=== PATIENT | male | born 1945 | race Caucasian/White ===

== ENCOUNTER 2019-01-05 22:13 | Inpatient (IN) ==
[2019-01-05] MEDS ORDERED: VANCOMYCIN HCL 2,500 MG in SODIUM CHLORIDE 0.9% 500 ML IV ONE (22:38)
[2019-01-05] MEDS ORDERED: VANCOMYCIN CONSULT ACTIVE PRN (22:38)
[2019-01-05] MEDS ORDERED: SODIUM CHLORIDE 0.9% 1000ML 1,000 ML IV SCH (22:45)
[2019-01-05 23:08] LABS: INR 1.1 (0.9-1.1); Prothrombin Time 10.9 Seconds (9.0-12.0)
[2019-01-05 23:15] LABS: Alanine Aminotransferase 17 U/L (12-78); Albumin Level 2.8 gm/dl (3.4-5.0); Aspartate Aminotransferase 10 U/L (15-37); BUN Creatinine Ratio 19.8 (10-20); Blood Urea Nitrogen 43 mg/dl (7-18); Calcium 8.4 mg/dl (8.5-10.1); Carbon Dioxide 21 mmol/L (21-32); Chloride 102 mmol/L (98-107); Creatinine Clr Calc Pharmacy 37.1 ml/min; Est GFR (African American) 33.7; Est GFR (Non-African American) 29.1; Glucose 185 mg/dl (70-99); Potassium 4.3 mmol/L (3.5-5.1); Sodium 135 mmol/L (136-145)
[2019-01-05 23:19] LABS: Albumin Globulin Ratio 0.6 (0.9-2); Alkaline Phosphatase 111 U/L (45-117); Bilirubin,Total 0.4 mg/dl (0.2-1); Globulin 4.6 gm/dl (2.5-4.0); Total Protein 7.4 gm/dl (6.4-8.2); Troponin I < 0.015 ng/ml (0-0.045)
--- NOTE | 2019-01-05 23:35 | Emergency Department Note ---
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 She states the patient went to [place] a couple weeks ago. She notes the patient's wound opened up on December 12. She states the patient's wound has been getting deeper and he has been getting packing put in it. She states a culture of the wound has not been taken in the past 2 weeks. She states the patient has been taking Vancomycin for the past 6 weeks. The patient's states the patient's dressing was changed this morning. She states the patient's wound has been draining for the last couple weeks. She notes they drove from [place] this morning. The patient's daughter states the patient's leg was really swollen and the patient was complaining about leg pain when he arrived in [place]. The daughter notes the patient then fell asleep. The daughter states when they rechecked on the patient he had a high fever and was not talking. The daughter notes the patient's left leg was swollen. The daughter states the patient's hand and legs were twitching. The patient states he feels better than how he felt earlier. The notes the patient took oxycodone this morning and at 1800. The denies the patient having any cold symptoms. The states the patient got a flu shot last week. Home Medications Home Medications Medication Instructions Recorded Confirmed Type aspirin 81 mg PO DAILY 01/05/19 01/05/19 History bupropion HCl 200 mg PO QAM 01/05/19 01/05/19 History carvedilol 3.125 mg PO BID 01/05/19 01/05/19 History doxycycline hyclate 100 mg PO BID 01/05/19 01/05/19 History gabapentin 100 mg PO BID 01/05/19 01/05/19 History nifedipine 90 mg PO DAILY 01/05/19 01/06/19 History oxycodone [Roxicodone] 5 mg PO Q6H PRN 01/05/19 01/05/19 History pregabalin 75 mg PO BID 01/05/19 01/05/19 History allopurinol 200 mg PO DAILY 01/06/19 01/06/19 History bisacodyl 15 mg PO DIRECTED 01/06/19 01/06/19 History bumetanide 1 mg PO BID 01/06/19 01/06/19 History colchicine 0.6 mg PO DAILY 01/06/19 01/06/19 History cyanocobalamin (vitamin B-12) 1,000 mcg PO DAILY 01/06/19 01/06/19 History folic acid 1 mg PO DAILY 01/06/19 01/06/19 History hydrocortisone 1 applic TOPICAL DAILY PRN 01/06/19 01/06/19 History insulin aspart U-100 11 unit SUBCUT QAM 01/06/19 01/06/19 History insulin aspart U-100 15 unit SUBCUT DIRECTED 01/06/19 01/06/19 History insulin glargine 25 unit SUBCUT HS 01/06/19 01/06/19 History isosorbide dinitrate 10 mg PO TID 01/06/19 01/06/19 History ketoconazole 2 % TOPICAL DAILY 01/06/19 01/06/19 History linezolid 600 mg PO BID 01/06/19 01/06/19 History metformin 1,000 mg PO TID 01/06/19 01/06/19 History multivitamin 1 tab PO QAM 01/06/19 01/06/19 History polyethylene glycol 3350 [Miralax] 17 g PO DAILY 01/06/19 01/06/19 History pravastatin 80 mg PO DAILY 01/06/19 01/06/19 History triamcinolone acetonide 1 applic TOPICAL DAILY 01/06/19 01/06/19 History Allergies Allergy/AdvReac Type Severity Reaction Status Date / Time aspirin Allergy Mild adverse Verified 01/05/19 23:44 reaction atorvastatin Allergy Mild adverse Verified 01/05/19 23:44 reaction metoprolol Allergy Mild adverse Verified 01/05/19 23:44 reaction Past Med/Surg History Medical History Diabetes Surgical History Amputation of one or more toes Family History Other Family history non-contributory Social History Preferred Language: Greenlandic Communication Ability: Effective Feels Safe at Home: Yes Smoking Status: Former smoker Review of Systems See HPI for pertinent positives & negatives. and A total of 10 systems reviewed and were otherwise negative Physical Exam Vital Signs Vital Signs - 24 hr 01/05/19 22:17 01/05/19 22:20 01/05/19 22:46 Temperature 38.9 C H Temperature Source Oral Sepsis Recent Fever Within 48 Hours Yes Sepsis Action Taken by Nursing No Action Required Oxygen Flow Rate - Titration 2 Pulse Rate 110 H 112 H 108 H Pulse Rate from SpO2 Sensor 110 H 108 H Respiratory Rate 20 19 22 Respiratory Effort / Characteristics Non-Labored Respiratory Depth Normal Blood Pressure 136/74 136/74 142/75 H Blood Pressure Mean 94 94 97 Pulse Oximetry 94 95 93 Oxygen Delivery Method Nasal Cannula Oxygen Flow Rate 2 01/05/19 23:00 01/05/19 23:30 01/06/19 00:00 Temperature Temperature Source Sepsis Recent Fever Within 48 Hours Sepsis Action Taken by Nursing Oxygen Flow Rate - Titration Pulse Rate 109 H 108 H 107 H Pulse Rate from SpO2 Sensor 109 H 108 H 107 H Respiratory Rate 23 21 20 Respiratory Effort / Characteristics Respiratory Depth Blood Pressure 138/77 135/77 164/79 H Blood Pressure Mean 97 96 107 Pulse Oximetry 95 94 94 Oxygen Delivery Method Oxygen Flow Rate 01/06/19 00:30 Temperature 37.9 C H Temperature Source Sepsis Recent Fever Within 48 Hours Sepsis Action Taken by Nursing Oxygen Flow Rate - Titration Pulse Rate 103 H Pulse Rate from SpO2 Sensor 104 H Respiratory Rate 19 Respiratory Effort / Characteristics Respiratory Depth Blood Pressure 165/77 H Blood Pressure Mean 106 Pulse Oximetry 93 Oxygen Delivery Method Oxygen Flow Rate CONSTITUTIONAL/VITAL SIGNS: Reviewed / noted above. GENERAL: Non-toxic in appearance. INTEGUMENTARY: Warm, dry, and [place]. HEAD: Normocephalic. EYES: without scleral icterus or trauma. ENT/OROPHARYNX: clear and moist. LYMPHADENOPATHY/NECK: Is supple without lymphadenopathy or meningismus. RESPIRATORY: Lungs clear and equal. CARDIOVASCULAR: Regular rate and rhythm. GI/ABDOMEN: Soft and nontender. No organomegaly or pulsatile mass. No rebound or guarding. Normal bowel sounds. EXTREMITIES: Warm and well perfused. Toes of the left foot are previously amputated. Left foot is slightly warm and red. There is a lesion in the area of the third or fourth metatarsal that is open with purulent drainage. BACK: No CVA tenderness. NEUROLOGICAL: Seems slow to respond and slightly confused. He is a poor historian. PSYCHIATRIC: normal affect. MUSCULOSKELETAL: Normally developed with good muscle tone. Course 2219: The patient was evaluated in room B2, and a complete history and physical examination were performed. 0033: I discussed the patient's case with Dr. Mckee - [facility]. He will evaluate the patient for further management Administered Medications Vancomycin HCl 2,500 mg/ (Sodium Chloride) 550 mls @ 200 mls/hr IV NOW ONE Stop: 01/06/19 01:07 Last Admin: 01/06/19 00:38 Dose: 200 mls/hr Documented by: [id number] Discontinued Medications Sodium Chloride (Nss 1000ml) 1,000 mls @ 999 mls/hr IV .Q1H1M AI Stop: 01/05/19 23:45 Last Admin: 01/05/19 23:46 Dose: 999 mls/hr Documented by: [id number] Medical Decision Making Differential Diagnosis Differential diagnoses includes but is not limited to toxic, metabolic, infectious, traumatic, cardiac, neurologic, hematologic, psychiatric and inf lammatory etiologies. Medical Records Attestation: I reviewed the patient's medical records. Home Medications Current Medication List: was personally reviewed by me Laboratory Data Attestation: I reviewed the patient's lab results. Result diagrams: 01/05/19 22:36 01/05/19 22:36 Lab Results 01/05/19 01/05/19 01/05/19 Range/Units 22:31 22:36 22:36 WBC (4.8-10.8) K/uL RBC (4.7-6.1) M/uL Hgb (14.0-18.0) g/dL Hct (42-52) % MCV (80-100) fL MCH (25-34) pg MCHC (32-36) g/dL RDW Std Deviation (36.4-46.3) fL RDW Coeff of [place] (11.5-14.5) % Plt Count (130-400) K/uL MPV (7.4-10.4) fL Immature Gran % (Auto) % Neut % (Auto) % Lymph % (Auto) % [place] % (Auto) % Eos % (Auto) % Baso % (Auto) % Immature Gran # (Auto) (0.00-0.02) K/uL Neut # (Auto) (1.4-6.5) K/uL Lymph # (Auto) (1.2-3.4) K/uL [place] # (Auto) (0.11-0.59) K/uL Eos # (Auto) (0-0.5) K/uL Baso # (Auto) (0-0.2) K/uL RBC Morphology ESR > 90 H (0-14) mm/hr PT 10.9 (9.0-12.0) Seconds INR 1.1 (0.9-1.1) Sodium (136-145) mmol/L Potassium (3.5-5.1) mmol/L Chloride (98-107) mmol/L Carbon Dioxide (21-32) mmol/L Anion Gap (3-11) BUN (7-18) mg/dl Creatinine (0.6-1.4) mg/dl Est Cr Clr Drug Dosing ml/min Est GFR ( Amer) Est GFR (Non-Af Amer) BUN/Creatinine Ratio (10-20) Glucose (70-99) mg/dl POC Glucose 191 H (70-99) Lactate (0.4-2.0) mmol/L Calcium (8.5-10.1) mg/dl Total Bilirubin (0.2-1) mg/dl AST (15-37) U/L ALT (12-78) U/L Alkaline Phosphatase (45-117) U/L Troponin I (0-0.045) ng/ml C-Reactive Protein (0-0.29) mg/dl Total Protein (6.4-8.2) gm/dl Albumin (3.4-5.0) gm/dl Globulin (2.5-4.0) gm/dl Albumin/Globulin Ratio (0.9-2) Urine Color Urine Appearance (Clear) Urine pH (4.5-7.5) Ur Specific [place] (1.000-1.030) Urine Protein (Negative) Urine Glucose (UA) (Negative) Urine Ketones (Negative) Urine Blood (Negative) Urine Nitrite (Negative) Urine Bilirubin (Negative) Urine Urobilinogen (Negative) Ur Leukocyte Esterase (Negative) Urine WBC (Auto) (0-5) /hpf Urine RBC (Auto) (0-4) /hpf U Hyaline Cast (Auto) (0-5) /lpf U Epithel Cells (Auto) (0-5) /lpf Urine Bacteria (Auto) (Negative) Influenza Type A Ag (Neg) Influenza Type B Ag (Neg) 01/05/19 01/05/19 01/05/19 Range/Units 22:36 22:36 22:36 WBC 24.13 H (4.8-10.8) K/uL RBC 4.11 L (4.7-6.1) M/uL Hgb 11.3 L (14.0-18.0) g/dL Hct 34.4 L (42-52) % MCV 83.7 (80-100) fL MCH 27.5 (25-34) pg MCHC 32.8 (32-36) g/dL RDW Std Deviation 43.0 (36.4-46.3) fL RDW Coeff of [place] 14.1 (11.5-14.5) % Plt Count (130-400) K/uL MPV 10.9 H (7.4-10.4) fL Immature Gran % (Auto) 0.5 % Neut % (Auto) 83.0 % Lymph % (Auto) 8.1 % [place] % (Auto) 7.7 % Eos % (Auto) 0.6 % Baso % (Auto) 0.1 % Immature Gran # (Auto) 0.13 H (0.00-0.02) K/uL Neut # (Auto) 20.14 H (1.4-6.5) K/uL Lymph # (Auto) 1.97 (1.2-3.4) K/uL [place] # (Auto) 1.87 H (0.11-0.59) K/uL Eos # (Auto) 0.15 (0-0.5) K/uL Baso # (Auto) 0.03 (0-0.2) K/uL RBC Morphology Unremarkable ESR (0-14) mm/hr PT (9.0-12.0) Seconds INR (0.9-1.1) Sodium 135 L (136-145) mmol/L Potassium 4.3 (3.5-5.1) mmol/L Chloride 102 (98-107) mmol/L Carbon Dioxide 21 (21-32) mmol/L Anion Gap 12.0 H (3-11) BUN 43 H (7-18) mg/dl Creatinine 2.20 H (0.6-1.4) mg/dl Est Cr Clr Drug Dosing 37.1 ml/min Est GFR ( Amer) 33.7 Est GFR (Non-Af Amer) 29.1 BUN/Creatinine Ratio 19.8 (10-20) Glucose 185 H (70-99) mg/dl POC Glucose (70-99) Lactate 2.1 H* (0.4-2.0) mmol/L Calcium 8.4 L (8.5-10.1) mg/dl Total Bilirubin 0.4 (0.2-1) mg/dl AST 10 L (15-37) U/L ALT 17 (12-78) U/L Alkaline Phosphatase 111 (45-117) U/L Troponin I < 0.015 (0-0.045) ng/ml C-Reactive Protein 6.30 H (0-0.29) mg/dl Total Protein 7.4 (6.4-8.2) gm/dl Albumin 2.8 L (3.4-5.0) gm/dl Globulin 4.6 H (2.5-4.0) gm/dl Albumin/Globulin Ratio 0.6 L (0.9-2) Urine Color Urine Appearance (Clear) Urine pH (4.5-7.5) Ur Specific [place] (1.000-1.030) Urine Protein (Negative) Urine Glucose (UA) (Negative) Urine Ketones (Negative) Urine Blood (Negative) Urine Nitrite (Negative) Urine Bilirubin (Negative) Urine Urobilinogen (Negative) Ur Leukocyte Esterase (Negative) Urine WBC (Auto) (0-5) /hpf Urine RBC (Auto) (0-4) /hpf U Hyaline Cast (Auto) (0-5) /lpf U Epithel Cells (Auto) (0-5) /lpf Urine Bacteria (Auto) (Negative) Influenza Type A Ag (Neg) Influenza Type B Ag (Neg) 01/05/19 01/05/19 Range/Units 23:15 23:15 WBC (4.8-10.8) K/uL RBC (4.7-6.1) M/uL Hgb (14.0-18.0) g/dL Hct (42-52) % MCV (80-100) fL MCH (25-34) pg MCHC (32-36) g/dL RDW Std Deviation (36.4-46.3) fL RDW Coeff of [place] (11.5-14.5) % Plt Count (130-400) K/uL MPV (7.4-10.4) fL Immature Gran % (Auto) % Neut % (Auto) % Lymph % (Auto) % [place] % (Auto) % Eos % (Auto) % Baso % (Auto) % Immature Gran # (Auto) (0.00-0.02) K/uL Neut # (Auto) (1.4-6.5) K/uL Lymph # (Auto) (1.2-3.4) K/uL [place] # (Auto) (0.11-0.59) K/uL Eos # (Auto) (0-0.5) K/uL Baso # (Auto) (0-0.2) K/uL RBC Morphology ESR (0-14) mm/hr PT (9.0-12.0) Seconds INR (0.9-1.1) Sodium (136-145) mmol/L Potassium (3.5-5.1) mmol/L Chloride (98-107) mmol/L Carbon Dioxide (21-32) mmol/L Anion Gap (3-11) BUN (7-18) mg/dl Creatinine (0.6-1.4) mg/dl Est Cr Clr Drug Dosing ml/min Est GFR ( Amer) Est GFR (Non-Af Amer) BUN/Creatinine Ratio (10-20) Glucose (70-99) mg/dl POC Glucose (70-99) Lactate (0.4-2.0) mmol/L Calcium (8.5-10.1) mg/dl Total Bilirubin (0.2-1) mg/dl AST (15-37) U/L ALT (12-78) U/L Alkaline Phosphatase (45-117) U/L Troponin I (0-0.045) ng/ml C-Reactive Protein (0-0.29) mg/dl Total Protein (6.4-8.2) gm/dl Albumin (3.4-5.0) gm/dl Globulin (2.5-4.0) gm/dl Albumin/Globulin Ratio (0.9-2) Urine Color Yellow Urine Appearance Clear (Clear) Urine pH 5.0 (4.5-7.5) Ur Specific [place] 1.024 (1.000-1.030) Urine Protein 3+ H (Negative) Urine Glucose (UA) Trace H (Negative) Urine Ketones Trace H (Negative) Urine Blood Negative (Negative) Urine Nitrite Negative (Negative) Urine Bilirubin Negative (Negative) Urine Urobilinogen Negative (Negative) Ur Leukocyte Esterase Negative (Negative) Urine WBC (Auto) 1-5 (0-5) /hpf Urine RBC (Auto) 0-4 (0-4) /hpf U Hyaline Cast (Auto) 5-10 H (0-5) /lpf U Epithel Cells (Auto) 10-20 H (0-5) /lpf Urine Bacteria (Auto) Negative (Negative) Influenza Type A Ag Neg for Influ A (Neg) Influenza Type B Ag Neg for Influ B (Neg) Imaging Data Attestation: I personally reviewed and interpreted this imaging study as leo garcia: My Impression: Chest X-Ray 1 View: Chronic appearing interstitial changes. No pneumonia. no pneumothorax. X-Ray Left Foot 1 view: Osteomyelitis of the third metatarsal. ECG Data Attestation: I personally reviewed and interpreted this ECG as follows: Indication: altered mental status Rate (beats per minute): 109 Rhythm: sinus tachycardia Findings: no ST elevation and no ectopy Blood Pressure Blood Pressure Findings: Elevated blood pressure Blood Pressure Disposition: further management by hospitalist RADHA Dorado This is a 73-year-old male who presents to the ED with a chief complaint of a fever and change in mental status. The patient has a history of infection of his left foot. He has a history of diabetes. The patient has had the toes amputated from his left foot in the past. He has had an open wound in his left foot is for a few weeks. They have been recently putting packing in it and there is been some discharge. The patient's family also reports that he got a flu shot last week. The patient tonight was found to be somewhat confused. He had a high fever. He is from [place]. He is visiting from out of town. He normally goes to the [facility]. His exam reveals purulent discharge from a wound in his left foot. There is some redness and increased warmth in that area as well. He has not had any upper respiratory symptoms. Denies any nausea or vomiting. EKG shows a sinus tach at a rate of 103. Sed rate is greater than 90. CRP is 6.3. A chest x-ray did not show acute process according to my evaluation. X-ray of the left foot reveals osteomyelitis of the third metatarsal per my interpretation. White blood cell count is 24,000. BUN is 43 and creatinine is 2.2. Reviewing charts from the [facility] in [place], the kidney function is near baseline but slightly worse. Troponin is negative. Baseline renal function is unknown. Lactic acid level was slightly elevated. Urine did not show infection. The patient was given IV fluids. He was given a liter normal saline by EMS. He was also given a liter here. The patient was given IV vancomycin 25 mg/kg. He will be seen by the hospitalist for further evaluation and care. A culture of the wound was taken. Impression & Plan Osteomyelitis of foot, left, acute, Fever, Acute renal insufficiency Discharge Plan Visit Data Chief Complaint: Altered Mental Status ED Provider: Reji Moore Discharge Problem: Osteomyelitis of foot, left, acute, Fever, Acute renal insufficiency Patient Disposition: Being Evaluated by Hospitalist Condition: Fair Forms Stand Alone Forms: My [facility], Important Visit Information Prescriptions Prescriptions: No Action doxycycline hyclate 100 mg Capsule 100 mg PO BID RF: 0 oxycodone [Roxicodone] 5 mg Tablet 5 mg PO Q6H PRN (Reason: Pain) RF: 0 aspirin 81 mg Tablet,Chewable 81 mg PO DAILY RF: 0 gabapentin 100 mg Capsule 100 mg PO BID RF: 0 bupropion HCl 200 mg Tablet Sustained-Release 12 Hr 200 mg PO QAM RF: 0 pregabalin 75 mg Capsule 75 mg PO BID RF: 0 carvedilol 3.125 mg Tablet 3.125 mg PO BID RF: 0 nifedipine 30 mg Tablet Extended Release 90 mg PO DAILY RF: 0 isosorbide dinitrate 10 mg Tablet 10 mg PO TID RF: 0 pravastatin 80 mg Tablet 80 mg PO DAILY RF: 0 bumetanide 1 mg Tablet 1 mg PO BID RF: 0 ketoconazole 2 % Shampoo 2 % TOPICAL DAILY RF: 0 hydrocortisone 1 % Cream 1 applic TOPICAL DAILY PRN (Reason: Itching) RF: 0 triamcinolone acetonide 0.025 % Cream 1 applic TOPICAL DAILY RF: 0 polyethylene glycol 3350 [Miralax] 17 gram Powder In Packet 17 g PO DAILY RF: 0 bisacodyl 5 mg Tablet 15 mg PO DIRECTED RF: 0 insulin aspart U-100 100 unit/mL Solution 11 unit SUBCUT QAM RF: 0 insulin aspart U-100 100 unit/mL Solution 15 unit SUBCUT DIRECTED RF: 0 insulin glargine 100 unit/mL Solution 25 unit SUBCUT HS RF: 0 metformin 1,000 mg Tablet 1,000 mg PO TID RF: 0 allopurinol 100 mg Tablet 200 mg PO DAILY RF: 0 colchicine 0.6 mg Tablet 0.6 mg PO DAILY RF: 0 cyanocobalamin (vitamin B-12) 1,000 mcg Tablet 1,000 mcg PO DAILY RF: 0 folic acid 1 mg Tablet 1 mg PO DAILY RF: 0 multivitamin Tablet 1 tab PO QAM RF: 0 linezolid 600 mg Tablet 600 mg PO BID RF: 0 Referrals Referrals: PCP,NO [Primary Care Provider] - Discharge Problem: Fever Qualifiers: Fever type: unspecified Qualified Code(s): R50.9 - Fever, unspecified The scribe's documentation has been prepared under my direction and personally reviewed by me in its entirety. I confirm that the note above accurately reflects all work, treatment, procedures, and medical decision making performed by me.
[2019-01-05 23:36] LABS: Appearance Urine Clear (Clear); Bacteria Urine Automated Negative (Negative); Bilirubin Urine Negative (Negative); Blood Urine Negative (Negative); Color Urine Yellow; Glucose Urine UA Trace (Negative); Ketones Urine Trace (Negative); Leukocyte Esterase Urine Negative (Negative); Nitrite Urine Negative (Negative); Protein Urine 3+ (Negative); RBC Urine Automated 0-4 /hpf (0-4); Specific Gravity Urine 1.024 (1.000-1.030); Urobilinogen Urine Negative (Negative)
[2019-01-05 23:57] LABS: Basophils # (auto) 0.03 K/uL (0-0.2); Basophils % (auto) 0.1 %; Eosinophils # (auto) 0.15 K/uL (0-0.5); Eosinophils % (auto) 0.6 %; Hematocrit (blood only) 34.4 % (42-52); Hemoglobin 11.3 g/dL (14.0-18.0); Immature Granulocytes # (auto) 0.13 K/uL (0.00-0.02); Immature Granulocytes % (auto) 0.5 %; Lymphocytes # (auto) 1.97 K/uL (1.2-3.4); Lymphocytes % (auto) 8.1 %; Mean Corpuscular Hemoglobin 27.5 pg (25-34); Mean Corpuscular Hgb Conc 32.8 g/dL (32-36); Mean Corpuscular Volume 83.7 fL (80-100); Mean Platelet Volume 10.9 fL (7.4-10.4); Monocytes # (auto) 1.87 K/uL (0.11-0.59); Monocytes % (auto) 7.7 %; Neutrophils # (auto) 20.14 K/uL (1.4-6.5); RDW Coefficient of Variation 14.1 % (11.5-14.5); Red Blood Count 4.11 M/uL (4.7-6.1); White Blood Count 24.13 K/uL (4.8-10.8)
[2019-01-05 23:58] LABS: RBC Morphology Unremarkable
--- NOTE | 2019-01-06 01:39 | History & Physical Report ---
Date of Service January 06, 2019 Assessment & Plan (1) Osteomyelitis of foot, left, acute: Mr. Dasilva is a 73-year-old male with a past medical history of diabetes mellitus type II, left-sided transmetatarsal amputation, CKD stage III, peripheral neuropathy, TIA x2, gout, depression who presents to the emergency department due to fever, altered mental status, and lethargy. ED course: Received 1 L normal saline bolus from EMS, and an additional 1 L bolus in ED. 2.5 g of vancomycin IV Sepsis secondary to osteomyelitis of left foot -Admit to telemetry -patient meets criteria for sepsis with fever, leukocytosis, tachycardia -WCC elevated to 24, ESR >90, CRP 6.3 -lactate elevated at 2.1 -> will repeat level with AM labs -pt negative for Influenza, UA negative, CXR without evidence for infection -source appears to be left 3rd metatarsal osteomyelitis -> seen on XR -pt has a hx of MRSA -continue vancomycin, and add zosyn for pseudomonas coverage given hx of diabetes -NS ordered at 120 mls/hr x 2L -bcx drawn x2, and wound cx obtained in ED -ortho consulted, recommendations appreciated FRANCESCA on a background of CKD3 -per review of records, creatinine seems to range from 1.1 - 2.6 -> unsure of baseline -creatinine on admission is 2.2 -monitor BMP, fluids as above -avoid nephrotoxic agents - states pt takes bumex which is for ?fluid overload related to kidneys - will hold this for now in the setting of sepsis DM2 -hold home metformin -pt takes 25 units of glargine qhs and rapid acting insulin during the day -will order 10 units lantus qhs and ISS given pt is lethargic w/poor p.o intake Peripheral Neuropathy/Chronic Pain -hold home pregabalin, gabapentin and oxycodone given lethargy & AMS Systolic Murmur -heard on examination, no prior [facility] denies cardiac history, including prior NV or CHF -ECHO ordered Hx of TIA x2 - describes 2 prior "mini-strokes" but states one involved a brain bleed? -no residual deficits -continue aspirin, pravastatin Hypertension -continue nifedipine and carvedilol Gout -hold home allopurinol given potential FRANCESCA -hold home colchicine given no evidence of gout flare at this time Depression -continue home bupropion Code status: FULL, confirmed with , who is POA DVT Prophylaxis: 5,000 units heparin SQ BID Disposition: admit to telemetry. CM discussed this patient's case with the [place] transfer center who stated the patient is able to admitted to [facility], and may be transferred to [place] if required. (2) Fever: (3) Acute renal insufficiency: (4) DM2 (diabetes mellitus, type 2): (5) CKD stage 3 due to type 2 diabetes mellitus: (6) History of TIA (transient ischemic attack): (7) Peripheral neuropathy: (8) History of gout: (9) Sepsis: (10) Depression: History of Present Illness Chief Complaint: Sepsis, osteomyelitis Primary Care Provider: NO PCP Mr. Dasilva is a 73-year-old male with a past medical history of diabetes mellitus type II, left-sided transmetatarsal amputation, CKD stage III, peripheral neuropathy, TIA x2, gout, depression who presents to the emergency department due to fever, altered mental status, and lethargy. The history is largely supplied by his due to Mr. Dasilva being lethargic. He had a left transmetatarsal amputation 1.5 years ago. This was done due to slow healing infections that were in his toes. He has 2 sores, on either side of his foot, that have been opening up recurrently over the past year. He has had 3 separate courses of 6 weeks of vancomycin for these infections, the most recent course being in October. He and his family are from [place], and he receives h is care from [facility]. His reports that the wound on his lateral aspect of his foot opened up on December 12. His family was treating it with packing, and dressing the wound. They have a wound care nurse that comes in for this. She stated that he had an appointment with his vascular surgeon 2 days ago at the [facility] in [place], who examined his foot, and stated that there was no infection present. Yesterday, they drove from [place] to [place], after which Mr. Dasilva became extremely tired and fatigued. His reports that he was sleeping at the evening, and had a fever of 105 F. She also notes that he was confused. This prompted her to call the ambulance. Past medical history: diabetes mellitus type II, left-sided transmetatarsal amp utation, CKD stage III, peripheral neuropathy, TIA x2 ( refers to these events as mini-strokes, but states one involved a bleed in his brain), gout, depression, hx of MRSA Past surgical history: Left knee replacement, cubital tunnel release, lithotripsy for kidney stones Meds: Allopurinol, aspirin, bisacodyl, Bumex, bupropion, carvedilol, colchicine, folic acid, gabapentin, insulin, isosorbide dinitrate, metformin, nifedipine, oxycodone, pravastatin, pregabalin Allergies: Aspirin, atorvastatin, metoprolol SHx: [place], served in [employer]. Lives with in [place]. Family is visiting [employer] for the [employer] game. Prior smoker, for 50 years, quit in 2011. Occasional beer, no recreational drugs. Allergies Allergy/AdvReac Type Severity Reaction Status Date / Time aspirin Allergy Mild adverse Verified 01/05/19 23:44 reaction atorvastatin Allergy Mild adverse Verified 01/05/19 23:44 reaction metoprolol Allergy Mild adverse Verified 01/05/19 23:44 reaction Home Medications Home Medications Medication Instructions Recorded Confirmed Type aspirin 81 mg PO DAILY 01/05/19 01/05/19 History bupropion HCl 200 mg PO QAM 01/05/19 01/05/19 History carvedilol 3.125 mg PO BID 01/05/19 01/05/19 History doxycycline hyclate 100 mg PO BID 01/05/19 01/05/19 History gabapentin 100 mg PO BID 01/05/19 01/05/19 History nifedipine 90 mg PO DAILY 01/05/19 01/06/19 History oxycodone [Roxicodone] 5 mg PO Q6H PRN 01/05/19 01/05/19 History pregabalin 75 mg PO BID 01/05/19 01/05/19 History allopurinol 200 mg PO DAILY 01/06/19 01/06/19 History bisacodyl 15 mg PO DIRECTED 01/06/19 01/06/19 History bumetanide 1 mg PO BID 01/06/19 01/06/19 History colchicine 0.6 mg PO DAILY 01/06/19 01/06/19 History cyanocobalamin (vitamin B-12) 1,000 mcg PO DAILY 01/06/19 01/06/19 History folic acid 1 mg PO DAILY 01/06/19 01/06/19 History hydrocortisone 1 applic TOPICAL DAILY PRN 01/06/19 01/06/19 History insulin aspart U-100 11 unit SUBCUT QAM 01/06/19 01/06/19 History insulin aspart U-100 15 unit SUBCUT DIRECTED 01/06/19 01/06/19 History insulin glargine 25 unit SUBCUT HS 01/06/19 01/06/19 History isosorbide dinitrate 10 mg PO TID 01/06/19 01/06/19 History ketoconazole 2 % TOPICAL DAILY 01/06/19 01/06/19 History linezolid 600 mg PO BID 01/06/19 01/06/19 History metformin 1,000 mg PO TID 01/06/19 01/06/19 History multivitamin 1 tab PO QAM 01/06/19 01/06/19 History polyethylene glycol 3350 [Miralax] 17 g PO DAILY 01/06/19 01/06/19 History pravastatin 80 mg PO DAILY 01/06/19 01/06/19 History triamcinolone acetonide 1 applic TOPICAL DAILY 01/06/19 01/06/19 History Past Med/Surg History Medical History Diabetes Surgical History Amputation of one or more toes Family History Other Family history non-contributory Social History Preferred Language: [place] Communication Ability: Confused [place] Required: No Beliefs That Will Affect Care: None Current Living Situation: Spouse Other Information That Helps Us Care for You: No Feels Safe at Home: Yes Safety Concerns: Feels Safe At This Time Smoking Status: Former smoker Hx Alcohol Use: No Hx Substance Use: No Review of Systems Review of Systems: Other (unobtainable due to lethargy) Physical Exam Constitutional: WD/WN, vitals as above + obese and + lethargic Respiratory: normal respiratory effort, lungs clear to auscultation Cardiovascular: Rate/Rhythm: regular rhythm and + tachycardic Heart Sounds: + murmur (Systolic murmur noted) Extremities: normal capillary refill and + pedal edema (Left foot) Chest (Breasts): normal inspection/palpation of breasts Gastrointestinal (Abdomen): Inspection/Auscultation: + abdomen distended Percussion/Palpation: abdomen soft; abdomen nontender, no guarding and abdomen not rigid Skin: no rashes, warm and dry Left foot with previous metatarsal amputation. Two wounds noted, the medial aspect appears dry and well healed. The lateral aspect has an ulcer draining purulent fluid. The surrounding skin is erythematous and hot to touch, extending up the anterior aspect of the calf Neurologic: Lethargic, arouses briefly, and follows commands, however quickly falls back asleep Results & Data Vital Signs (Past 12 Hours) Vital Signs Temp Pulse Resp BP Pulse Ox 01/06/19 00:30 37.9 C H 103 H 19 165/77 H 93 01/06/19 00:00 107 H 20 164/79 H 94 01/05/19 23:30 108 H 21 135/77 94 01/05/19 23:00 109 H 23 138/77 95 01/05/19 22:46 108 H 22 142/75 H 93 01/05/19 22:20 38.9 C H 112 H 19 136/74 95 01/05/19 22:17 110 H 20 136/74 94 Code Status & VTE Plan VTE Prophylaxis Plan VTE Prophylaxis will be ordered: Yes Supervising Physician Co-Signing Physician Notes Pt seen/examined in ER with resident MD Stan Johnson. Orders and plan of admission formulated with resident. 73 y/o M Hx DM II, CKD III, HLD, recurrent osteo L foot - prior transmetatarsal amputation. Presents with fever, tachycardia and lactic acidosis due to recurrent infection in L foot. OE AAO x 3 S1,2 R CTAB NT, ND L foot ulcer and shallow ulcer on mid toe of R XR is suspicious for osteo - an MRI is pending The pt will be placed on Zosyn and Vanc as he meets sepsis criteria Sliding scale for DM Cont statin and Colchicine PG Care Time/CCT Total # of Minutes Spent Total Time Spent with Patient: Total time spent is greater than 50% in coordination of care (as documented) at patient's floor/unit and/or counseling patient: Resident Activity Tracking Resident Involvement: Resident Care Provided Care Provided: Adult Hospital Medicine (1) Fever Fever type: unspecified Qualified Code(s): R50.9 - Fever, unspecified
[2019-01-06] MEDS ORDERED: BISACODYL PO SCH (02:52)
[2019-01-06] MEDS ORDERED: ACETAMINOPHEN 325 MG TAB PO PRN (02:52)
[2019-01-06] MEDS ORDERED: CARBOHYDRATES FOR HYPOGLYCEMIA PO PRN (02:52)
[2019-01-06] MEDS ORDERED: GLUCAGON FOR INJ 1 MG VIAL SQ PRN (02:52)
[2019-01-06] MEDS ORDERED: PIPERACILL/TAZOBAC CONSULT ACTIVE PRN (02:52)
[2019-01-06] MEDS ORDERED: GLUCOSE 40% GEL 15 GM TUBE PO PRN (02:52)
[2019-01-06] MEDS ORDERED: DEXTROSE 50% 50 ML SYRINGE IV PRN (02:52)
[2019-01-06] MEDS ORDERED: GLUCOSE 10 TABS/TUBE PO PRN (02:52)
[2019-01-06] MEDS: SODIUM CHLORIDE 0.9% 1000ML 1,000 ML IV SCH ×2 (03:28→11:39)
[2019-01-06] MEDS ORDERED: PIPERACILLIN/TAZOBACTAM 4.5 GM in DEXTROSE 5% 100 ML IV ONE (04:00)
[2019-01-06 04:39] LABS: Basophils # (auto) 0.04 K/uL (0-0.2); Basophils % (auto) 0.2 %; Eosinophils # (auto) 0.08 K/uL (0-0.5); Eosinophils % (auto) 0.4 %; Hematocrit (blood only) 33.1 % (42-52); Immature Granulocytes # (auto) 0.19 K/uL (0.00-0.02); Immature Granulocytes % (auto) 0.9 %; Lymphocytes # (auto) 2.08 K/uL (1.2-3.4); Lymphocytes % (auto) 9.3 %; Mean Corpuscular Hemoglobin 28.2 pg (25-34); Mean Corpuscular Hgb Conc 33.2 g/dL (32-36); Mean Corpuscular Volume 84.9 fL (80-100); Monocytes # (auto) 1.76 K/uL (0.11-0.59); Monocytes % (auto) 7.9 %; Neutrophils % (auto) 81.3 %; Platelet Count 296 K/uL (130-400); RDW Coefficient of Variation 14.2 % (11.5-14.5); RDW Standard Deviation 44.2 fL (36.4-46.3); White Blood Count 22.25 K/uL (4.8-10.8)
[2019-01-06 04:56] LABS: Calcium 8.1 mg/dl (8.5-10.1); Creatinine Clr Calc Pharmacy 45.4 ml/min; Est GFR (African American) 42.9; Potassium 4.3 mmol/L (3.5-5.1)
[2019-01-06] MEDS: ISOSORBIDE DINITRATE 10 MG TAB PO SCH ×3 (06:06→17:38)
--- NOTE | 2019-01-06 06:27 | XRay Report ---
XR chest 1V portable CLINICAL HISTORY: Fever. COMPARISON STUDY: No previous studies for comparison. FINDINGS: Lung volumes are normal. Mild cardiomegaly is noted. There is nonspecific interstitial prom inence. No lobar consolidation is present. There is no pneumothorax or pleural effusion. IMPRESSION: 1. Nonspecific interstitial prominence. 2. Mild cardiomegaly. Electronically signed by: Darío Brady M.D. 01/06/2019 6:24 AM
--- NOTE | 2019-01-06 06:28 | XRay Report ---
XR foot LT min 3V routine CLINICAL HISTORY: ? osteo left lateral metatarsal areas COMPARISON: None FINDINGS: Transmetatarsal amputation of the left foot is noted. There is osteolysis within remaining portions of the left third metatarsal. A small amount of soft tissue gas likely reflects a wound. Ex tensive vascular calcification is noted. IMPRESSION: 1. Status post transmetatarsal amputation of the left foot. 2. Osteolysis within remaining portions of the left third metatarsal consistent with osteomyelitis. S uspected overlying wound. Electronically signed by: Darío Brady M.D. 01/06/2019 6:27 AM
[2019-01-06] MEDS: carvediloL 3.125 MG TAB PO SCH ×3 (07:41→20:54)
[2019-01-06] MEDS: BuPROPion SR 100 MG TABCR PO SCH (07:42)
[2019-01-06] MEDS: FOLIC ACID 1 MG TAB PO SCH (07:42)
[2019-01-06] MEDS: PRAVASTATIN SOD 40 MG TAB PO SCH (07:42)
[2019-01-06] MEDS: NIFEdipine EXTENDED REL 30 MG TABCR PO SCH (07:42)
[2019-01-06] MEDS: ASPIRIN 81 MG ECTAB PO SCH (07:43)
[2019-01-06] MEDS: POLYETHYLENE (MIRALAX) 17 GM PACK PO SCH (07:43)
[2019-01-06] MEDS: MULTIVITAMIN TAB PO SCH (07:43)
[2019-01-06] MEDS: HEPARIN SOD 5,000 UNIT/0.5 ML VIAL SQ SCH ×2 (07:44→20:51)
[2019-01-06] MEDS: INSULIN ASPART 100 UNITS/ML 3 ML PEN SC SCH ×4 (07:48→20:47)
[2019-01-06] MEDS ORDERED: PIPERACILLIN/TAZOBACTAM 3.375 GM in DEXTROSE 5% 100 ML IV SCH (08:00)
[2019-01-06] MEDS: PIPERACILLIN/TAZOBACTAM 4.5 GM in DEXTROSE 5% 100 ML IV SCH ×3 (08:27→23:47)
[2019-01-06] MEDS ORDERED: PNEUMOCOCCAL ADMINISTRATION CHARGE ONE (09:00)
[2019-01-06] MEDS ORDERED: INFLUENZA ADMINISTRATION CHARGE ONE (09:00)
[2019-01-06] MEDS ORDERED: PNEUMOCOCCAL POLYSACCHARIDES 25 MCG/0.5 ML VIAL/SYR IM ONE (09:00)
[2019-01-06] MEDS ORDERED: INFLUENZA VIRUS QUAD VACCINE 0.5 ML SYR IM ONE (09:00)
--- NOTE | 2019-01-06 12:01 | History & Physical Bridge Note ---
Date of Service January 06, 2019 History & Physical Bridge Note I have examined the patient, reviewed the History & Physical and in the interval since the performance of the History & Physical I have noted the following changes of clinical significance Patient feeling much better, no longer confused, no fever, vitals stable. He states that he does not want to stay in the hospital, he is here in [place] for the [employer] tomorrow He has numerous family members in town for the game and wants to visit with them. He and his agree that he needs surgery for his current wound and underlying osteomyelitis Discussed plan with them, will give IV antibiotics up until tomorrow morning this will give him coverage for the rest of the day, he plans to visit with family, take it easy Will go to [facility] tomorrow afternoon/evening and go to the ED for admission discussed with Pharmacy, still working on Vancomycin dosing, will repeat BMP this afternoon His Cr is down to 1.8 from 2.2, unclear baseline WBC down to 22k from 24k, will repeat in the morning no fevers, vitals stable, cognition back to baseline transfer to medical floor as he has no telemetry needs
--- NOTE | 2019-01-06 14:22 | Pharmacy Report ---
Pharmacy Abx Initial Consult - Date of Service January 06, 2019 - Pharmacy Dosing Scope Date of Consult: 01/06 Consultation requested by: Dr. Johnson Pharmacy is consulted to initiate vancomycin/zosyn IV/PO dosing therapy, order appropriate labs and adjust drug dose/frequency. - Subjective The patient is a 73 year old M admitted on 01/06/19 01:27. - Objective Height: 5 ft 11 in Weight: 99.1 kg Vital Signs (Past 12hrs): Vital Signs Temp Pulse Pulse Resp BP BP Pulse Ox 01/06/19 12:00 36.8 C 111 H 97 H 22 140/66 90 01/06/19 11:02 81 15 140/66 95 01/06/19 11:00 82 16 140/66 94 01/06/19 10:00 85 14 123/63 95 01/06/19 09:00 91 H 20 128/78 93 01/06/19 08:23 90 01/06/19 08:00 36.7 C 93 H 94 H 20 136/68 123/65 90 01/06/19 07:52 94 01/06/19 07:00 94 H 19 123/65 95 01/06/19 04:00 37.6 C H 99 H 16 143/74 H 99 01/06/19 03:03 39.0 C H 99 H 16 139/72 94 01/06/19 02:51 39.0 C H 99 H 16 139/72 94 Lab Results (24hrs): Laboratory Tests (24 Hours) 01/06/19 01/06/19 01/05/19 04:30 04:30 22:36 WBC 22.25 H Neut # (Auto) 18.10 H ESR Creatinine 1.80 H D 2.20 H Est Cr Clr Drug Dosing 45.4 37.1 C-Reactive Protein 6.30 H 01/05/19 01/05/19 22:36 22:36 WBC 24.13 H Neut # (Auto) 20.14 H ESR > 90 H Creatinine Est Cr Clr Drug Dosing C-Reactive Protein Micro Results: 01/05/19 22:30 Gram Stain - Final Foot,Left 01/05/19 22:36 Aerobic Blood Culture - Pending Blood Anaerobic Blood Culture - Pending 01/05/19 22:40 Aerobic Blood Culture - Pending Blood Anaerobic Blood Culture - Pending - Risk Factors for Resistance * History of infection with a multidrug-resistant organism: * Antimicrobial use within the last 90 days - Assessment & Plan Assessment 73 year old M with type II diabetes, left transmetatarsal amputation, CKD III, peripheral neuropathy, TIA, gout, depression presented to the emergency department with altered mental status,fever. Patient has sores/infection in toe and has been treated per providers notes with vancomycin for these foot infection in [place], visiting for [employer]. WBC elevated on admission, Tmax 39, foot x-ray suggestive for osteomyelitits. Patient started on vancomycin/zosyn. Patient improved today, no longer confused, would like to go to [facility] tomorrow. Plan to give antibiotics throughout today and hopefully tomorrow morning before discharge, plan to discharge tomorrow AM- patient to go to [facility] tomorrow afternoon for further treatment. SCr elevated on admission, uncertain of baseline but has improved from 2.2 to 1.8, will check another bmp this afternoon to help determine if shorter dosing interval is able to be done. Plan Vancomycin IV * Estimated PK Parameters: Vd 0.7 L/kg, Reggie 0.042 hr-1, t1/2 16.5 hr * Loading dose: 2500 mg (25 mg/kg) * Maintenance dose: 1500 mg IV (15 mg/kg) every 18 hours * Goal trough level 15-20 mcg/mL * Trough not ordered as expect dose to change/patient to be discharged * A less than traditional dose and/or extended dosing interval has/have been selected due to likelihood of drug accumulation in obese patient/patient with h/o CKD. Piperacillin/tazobactam * 4.5 g bolus administered over 30 minutes, then 4.5 g IV extended infusion every 8 hours for CrCl greater than 20 mL/min Pharmacy will continue to follow and will adjust dose/frequency as necessary. Thank you.
[2019-01-06 15:42] LABS: BUN Creatinine Ratio 17.4 (10-20); Calcium 8.4 mg/dl (8.5-10.1); Creatinine Clr Calc Pharmacy 42.6 ml/min; Est GFR (Non-African American) 34.5; Potassium 4.1 mmol/L (3.5-5.1)
[2019-01-06] MEDS ORDERED: VANCOMYCIN HCL 1,500 MG in SODIUM CHLORIDE 0.9% 500 ML IV SCH (17:00)
[2019-01-06] MEDS: OXYCODONE HCL IR 5 MG TAB (IMMEDIATE RELEASE) PO PRN (17:30)
[2019-01-06] MEDS ORDERED: INSULIN GLARGINE SOLOSTAR 100 UNITS/ML 3 ML PEN SC SCH ×2 (21:00)
[2019-01-06] MEDS ORDERED: BENZONATATE 100 MG CAPSULE PO ONE (21:30)
[2019-01-07] MEDS: OXYCODONE HCL IR 5 MG TAB (IMMEDIATE RELEASE) PO PRN (01:14)
[2019-01-07 05:06] LABS: Basophils # (auto) 0.04 K/uL (0-0.2); Basophils % (auto) 0.3 %; Eosinophils # (auto) 0.05 K/uL (0-0.5); Eosinophils % (auto) 0.3 %; Hematocrit (blood only) 30.8 % (42-52); Hemoglobin 10.2 g/dL (14.0-18.0); Immature Granulocytes # (auto) 0.06 K/uL (0.00-0.02); Immature Granulocytes % (auto) 0.4 %; Lymphocytes # (auto) 1.46 K/uL (1.2-3.4); Mean Corpuscular Hemoglobin 28.1 pg (25-34); Mean Corpuscular Hgb Conc 33.1 g/dL (32-36); Mean Corpuscular Volume 84.8 fL (80-100); Mean Platelet Volume 10.6 fL (7.4-10.4); Monocytes # (auto) 1.05 K/uL (0.11-0.59); Monocytes % (auto) 7.2 %; Neutrophils % (auto) 81.8 %; Platelet Count 270 K/uL (130-400); RDW Coefficient of Variation 14.1 % (11.5-14.5); RDW Standard Deviation 43.9 fL (36.4-46.3); Red Blood Count 3.63 M/uL (4.7-6.1); White Blood Count 14.56 K/uL (4.8-10.8)
[2019-01-07] MEDS: ISOSORBIDE DINITRATE 10 MG TAB PO SCH (06:29)
[2019-01-07 06:51] LABS: BUN Creatinine Ratio 19.7 (10-20); Calcium 8.6 mg/dl (8.5-10.1); Creatinine Clr Calc Pharmacy 43.5 ml/min; Est GFR (Non-African American) 35.4; Potassium 4.6 mmol/L (3.5-5.1)
[2019-01-07] MEDS: NIFEdipine EXTENDED REL 30 MG TABCR PO SCH (07:38)
[2019-01-07] MEDS: PIPERACILLIN/TAZOBACTAM 4.5 GM in DEXTROSE 5% 100 ML IV SCH (07:38)
[2019-01-07] MEDS: BuPROPion SR 100 MG TABCR PO SCH (07:39)
[2019-01-07] MEDS: FOLIC ACID 1 MG TAB PO SCH (07:39)
[2019-01-07] MEDS: ASPIRIN 81 MG ECTAB PO SCH (07:39)
[2019-01-07] MEDS: carvediloL 3.125 MG TAB PO SCH (07:39)
[2019-01-07] MEDS: MULTIVITAMIN TAB PO SCH (07:40)
[2019-01-07] MEDS: PRAVASTATIN SOD 40 MG TAB PO SCH (07:40)
[2019-01-07] MEDS: POLYETHYLENE (MIRALAX) 17 GM PACK PO SCH (07:41)
[2019-01-07] MEDS ORDERED: BENZONATATE 100 MG CAPSULE PO SCH (09:00)
[2019-01-07] MEDS: INSULIN ASPART 100 UNITS/ML 3 ML PEN SC SCH (09:12)
--- NOTE | 2019-01-07 13:07 | Discharge Summary ---
Date of Service January 07, 2019 Admission HPI Per Admitting Provider Mr. Dasilva is a 73-year-old male with a past medical history of diabetes mellitus type II, left-sided transmetatarsal amputation, CKD stage III, peripheral neuropathy, TIA x2, gout, depression who presents to the emergency department due to fever, altered mental status, and lethargy. The history is largely supplied by his due to Mr. Dasilva being lethargic. He had a left transmetatarsal amputation 1.5 years ago. This was done due to slow healing infections that were in his toes. He has 2 sores, on either side of his foot, that have been opening up recurrently over the past year. He has had 3 separate courses of 6 weeks of vancomycin for these infections, the most recent course being in October. He and his family are from [place], and he receives his care from [facility]. His reports that the wound on his lateral aspect of his foot opened up on December 12. His family was treating it with packing, and dressing the wound. They have a wound care nurse that comes in for this. She stated that he had an appointment with his vascular surgeon 2 days ago at the [facility] in [place], who examined his foot, and stated that there was no infection present. Yesterday, they drove from [place] to [place], after which Mr. Dasilva became extremely tired and fatigued. His reports that he was sleeping at the evening, and had a fever of 105 F. She also notes that he was confused. This prompted her to call the ambulance. Past medical history: diabetes mellitus type II, left-sided transmetatarsal amputation, CKD stage III, peripheral neuropathy, TIA x2 ( refers to these events as mini-strokes, but states one involved a bleed in his brain), gout, depression, hx of MRSA Past surgical history: Left knee replacement, cubital tunnel release, lithotripsy for kidney stones Meds: Allopurinol, aspirin, bisacodyl, Bumex, bupropion, carvedilol, colchicine, folic acid, gabapentin, insulin, isosorbide dinitrate, metformin, nifedipine, oxycodone, pravastatin, pregabalin Allergies: Aspirin, atorvastatin, metoprolol SHx: , served in [place]. Lives with in [place]. Family is visiting [place] for the football game. Prior smoker, for 50 years, quit in 2011. Occasional beer, no recreational drugs. Principal Diagnosis Sepsis due to osteomyelitis of third metatarsal on left Discharge Exam Constitutional WD/WN, vitals as above Eyes PERRL, conjunctivae normal, anicteric sclerae ENMT external ear and nose normal, oropharynx normal Neck trachea midline, no thyromegaly Respiratory normal respiratory effort, lungs clear to auscultation Cardiovascular RRR, no murmur, no edema Gastrointestinal (Abdomen) normal bowel sounds, soft, nontender, no hepatosplenomegaly Musculoskeletal no cyanosis or clubbing, extremities motor strength 5/5 (left transmetatarsal amputation) Skin no rashes, warm and dry + wound (left foot amputation site, clean, no drainage) Neurologic patellar DTR's 2+ bilat, sensation intact and PERRL, EOMI, accommodation nl, no face palsy, no dysarthria Psychiatric A+Ox3, euthymic affect Lymphatic no cervical or axillary lymphadenopathy Discharge Data Allergies Allergy/AdvReac Type Severity Reaction Status Date / Time aspirin Allergy Mild adverse Verified 01/05/19 23:44 reaction atorvastatin Allergy Mild adverse Verified 01/05/19 23:44 reaction metoprolol Allergy Mild adverse Verified 01/05/19 23:44 reaction Consultations 01/06/19 02:52 Consult Case Management - Discharge Planning Routine Hospital Course (1) Osteomyelitis of foot, left, acute: responded well to Vancomycin and Zosyn WBC down to 14k from 24k, no fever, no pain in foot vitals stable wound cultures grew Strep as well as two strains of Pseudomonas, charles sensitive discussed with patient that he needs to get surgical treatment at [facility] he will be discharged with plans to follow up within 24 hours back home difficult situation as patient was here in town for football game, large number of family members here he did not want to stay in hospital on 01/06 convinced him to stay until 01/07 to get further IV antibiotics he will go home with his , she will take him to hospital in [place] after they visit with family (2) Fever: resolved, was due to osteomyelitis (3) Acute renal insufficiency: Cr of 2.2 improved to 1.87 with IV fluids unsure of baseline Cr since he is not in our system making adequate fluids, electrolytes stable (4) DM2 (diabetes mellitus, type 2): continue insulin, diabetic diet (5) CKD stage 3 due to type 2 diabetes mellitus: Cr down to 1.87, likely baseline (6) History of TIA (transient ischemic attack): (7) Peripheral neuropathy: (8) History of gout: (9) Sepsis: due to osteomyelitis, resolved (10) Depression: (11) Metabolic encephalopathy: due to osteomyelitis and sepsis resolved with abx and supportive care Total Time Total Time Spent Total Time Spent (In Minutes): 35 minutes Total Time Includes: Examination of the Patient, Discharge Planning and Medication Reconciliation Discharge Plan Discharge Items Patient Disposition: Home - Self-Care Reason For Visit: SEPSIS, OSTEOMYELITIS Discharge Diagnosis: Suspected osteomyelitis of 3rd metatarsal Sepsis, resolved Condition on Discharge: Fair Health Concerns: you need to seek medical attention at [facility] later today when you get home Goals: receive definitive care for 3rd metatarsal osteomyelitis, you likely need surgery Activity: Per Instructions section Activity Comment: no strenuous activity today Lifting: None Bathing: No limitations Exercise/Sports: Rest today Driving/Machine Use: Resume 3 days after discharge Non-emergency contact: Primary Care Provider and Surgeon Call non-emergency contact if: you have any medication questions, your symptoms worsen, your pain is not controlled, your pain is worsening and you have a fever Follow-up/Referrals: PCP,NO [Primary Care Provider] - Diet: Carb Consistent or DM2 and Heart Healthy Addtl Attending Provider Instructions: Medications: no changes, continue on Linezolid and Doxycycline As we discussed, you need to seek medical attention at [facility] later today you have evidence of osteomyelitis in 3rd metatarsal on left you have improved clinically in 24 hours no fever, vitals stable, WBC down to 14k from 24k on admission however, this will likely require surgical debridement, IV antibiotics Pending Studies at Discharge: No Stand-Alone Forms: My [facility] Medications and DC Order Prescriptions: Continued doxycycline hyclate 100 mg Capsule 100 mg PO BID RF: 0 oxycodone [Roxicodone] 5 mg Tablet 5 mg PO Q6H PRN (Reason: Pain) RF: 0 aspirin 81 mg Tablet,Chewable 81 mg PO DAILY RF: 0 gabapentin 100 mg Capsule 100 mg PO BID RF: 0 bupropion HCl 200 mg Tablet Sustained-Release 12 Hr 200 mg PO QAM RF: 0 pregabalin 75 mg Capsule 75 mg PO BID RF: 0 carvedilol 3.125 mg Tablet 3.125 mg PO BID RF: 0 nifedipine 30 mg Tablet Extended Release 90 mg PO DAILY RF: 0 isosorbide dinitrate 10 mg Tablet 10 mg PO TID RF: 0 pravastatin 80 mg Tablet 80 mg PO DAILY RF: 0 bumetanide 1 mg Tablet 1 mg PO BID RF: 0 ketoconazole 2 % Shampoo 2 % TOPICAL DAILY RF: 0 hydrocortisone 1 % Cream 1 applic TOPICAL DAILY PRN (Reason: Itching) RF: 0 triamcinolone acetonide 0.025 % Cream 1 applic TOPICAL DAILY RF: 0 polyethylene glycol 3350 [Miralax] 17 gram Powder In Packet 17 g PO DAILY RF: 0 bisacodyl 5 mg Tablet 15 mg PO DIRECTED RF: 0 insulin aspart U-100 100 unit/mL Solution 11 unit SUBCUT QAM RF: 0 insulin aspart U-100 100 unit/mL Solution 15 unit SUBCUT DIRECTED RF: 0 insulin glargine 100 unit/mL Solution 25 unit SUBCUT HS RF: 0 metformin 1,000 mg Tablet 1,000 mg PO TID RF: 0 allopurinol 100 mg Tablet 200 mg PO DAILY RF: 0 colchicine 0.6 mg Tablet 0.6 mg PO DAILY RF: 0 cyanocobalamin (vitamin B-12) 1,000 mcg Tablet 1,000 mcg PO DAILY RF: 0 folic acid 1 mg Tablet 1 mg PO DAILY RF: 0 multivitamin Tablet 1 tab PO QAM RF: 0 linezolid 600 mg Tablet 600 mg PO BID RF: 0 Discharge Orders: Discharge Order (Routine); Ordered 01/07/19 Ordered By: Nba Crawford Admission Data Admit Date/Time: 01/06/19 01:27 Attending Provider: Nba Crawford Admit Provider: Jeanna Johnson Primary Care Provider: PCP,NO Other Interventions: Discharge Summary Assessment (RN) Last Done: 01/07/19 07:53 DC Date/Time DO NOT enter until pt leaves facility: 01/07/19 09:45
== END 2019-01-07 09:45 | disposition home or self-care (01) | DRG 871 ==
LOC: EDSEX → ED 22:13 → SUATTDRO 01-06 01:27 → 1E 01-06 01:27 → 4W 01-06 14:00